=== PATIENT | male | born 1980 | race Hispanic/Latino ===

== ENCOUNTER → 2017-12-16 08:03 | Emergency (ER) | payer BC, OTHER ==
[~2017-12-16 08:03] MED LIST: Lidocaine 1% Inj (20ml) ONE; Tdap Vaccine 0.5 ml Vial (10-64 yrs) IM ONE
[2017-12-16 09:18] VITALS: BMI 28.7
== END | disposition left against medical advice (07) ==
LOC: C.ER 08:03
DX: Z02.89 Encounter for other administrative examinations (principal); T14.90XA Injury, unspecified, initial encounter

== ENCOUNTER 2017-12-16 08:58 | Emergency (ER) | payer BC, OTHER ==
[2017-12-16 09:18] VITALS: BMI 28.7
[2017-12-16 09:22] VITALS: BP 123/84; PULSE 82; RESP 20; TEMP 98.1; O2SAT 97
[2017-12-16] MEDS ORDERED: Tdap Vaccine 0.5 ml Vial (10-64 yrs) IM ONE (09:32)
[2017-12-16] MEDS ORDERED: Lidocaine 1% Inj (20ml) INFIL ONE (09:32)
--- NOTE | 2017-12-16 09:33 | C.PDOC ---
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 Patient states glass broke, a shard of glass went airborne and landed straight down just proximal to the L foot 2nd digit. He states he irrigated the wound immediately. Unknown last tetanus. Denies numbness, motor weakness, or current bleeding. Time Seen by Provider: 12/16/17 09:17 Chief Complaint (Nursing): Abnormal Skin Integrity Past Medical History Vital Signs: Last Vital Signs Temp 98.1 F 12/16/17 09:19 Pulse 82 12/16/17 09:19 Resp 20 12/16/17 09:19 BP 123/84 12/16/17 09:19 Pulse Ox 97 12/16/17 09:33 Family History: States: Unknown Family Hx - Social History Hx Tobacco Use: No Hx Alcohol Use: Yes Hx Substance Use: No - Immunization History Hx Tetanus Toxoid Vaccination: Yes Hx Influenza Vaccination: No Hx Pneumococcal Vaccination: No Review Of Systems Except As Marked, All Systems Reviewed And Found Negative. Skin: Negative for: Rash Neurological: Negative for: Weakness Physical Exam - Physical Exam Additional Physical Exam Comments: Gen: NAD Head: NC Skin: 1cm laceration proximal to L foot 2nd digit, tendon visible, appears intact, no debris. MSK: Laceration as above. FROM of L foot digits. Neuro: Alert, active ROM of L foot digits intact. ED Course And Treatment O2 Sat by Pulse Oximetry: 97 Laceration - Laceration Repair No standard instances Wound Length (In cm): 1 Description Of Wound: Linear Wound Cleansed With: Betadine, Sterile Saline Anesthesia: Lidocaine 1% Wound Examination: Irrigated With Saline, No FB With Wound Exploration, No Tendon Injury With Wound Exploration Wound Closure: Suture (5-0) Suture Technique And Material Used: Interrupted (2) Wound Complexity: Simple Medical Decision Making Medical Decision Making: Tetanus updated. Laceration closed. Have removed in 10 days. Return immediately for erythema, fever, pus, or any other problem. Disposition - Disposition Disposition: HOME/ ROUTINE Disposition Time: 09:32 Condition: STABLE Instructions: Care For Your Stitches (ED), Laceration (ED) Forms: Aiming (Malay) - Clinical Impression Clinical Impression: Laceration
== END 2017-12-16 09:45 | disposition home or self-care (01) ==
LOC: C.ER 08:58
DX: S91.312A Laceration without foreign body, left foot, initial encounter (principal); W25.XXXA Contact with sharp glass, initial encounter; Z23 Encounter for immunization